=== PATIENT | female | born 1940 | race Caucasian/White ===

== ENCOUNTER 2021-03-10 10:50 | Outpatient (REF) | payer MEDICARE, SELFPAY ==
--- NOTE | ~2021-03-10 | MR_ITS ---
EXAMINATION: UNENHANCED MRI OF THE THORACIC SPINE; UNENHANCED MRI OF THE LUMBAR SPINE CLINICAL INFORMATION: Wedge compression fracture seen on CT at T12 and L2. Self-reported constant back pain after moving a refrigerator months ago. Constant pain around waist. Self-reported bilateral arm pain that sometimes is present. COMPARISON: Report CT lumbar spine 01/28/2021, report CT abdomen pelvis 01/28/2021. TECHNIQUE: Routine unenhanced MRI of the thoracic spine; routine unenhanced MRI of the lumbar spine. FINDINGS: MRI THORACIC SPINE: The T12 vertebral body demonstrates a horizontally oriented cleft containing fluid with approximately 50% overall loss of craniocaudal height of the vertebral body with an anterior wedge deformity in association with 5 mm retropulsion of T12. Marrow edema is present within the vertebral body with minimal extension into the left and right pedicles. Moderate-marked adjacent central canal stenosis is present with near complete effacement of the adjacent thecal sac CSF space and posterior displacement and AP deformation of the adjacent spinal cord without associated focal spinal cord signal abnormality. Furthermore, moderate bilateral foraminal stenoses are present secondary to intraforaminal and extraforaminal endplate osteophytosis and retropulsion with mild bilateral T11 dorsal root ganglion impingement. Elsewhere within the thoracic spine, no vertebral body compression deformities are identified and no additional vertebral body areas of edema or inflammatory changes are noted. No significant central or foraminal stenoses are noted elsewhere within the thoracic spine. Incidental note is made of multilevel bilateral extraforaminal perineural sheath cyst. Findings are most pronounced at T9-T10 where a left-sided perineural sheath cyst measures 1.3 cm in diameter. Within the incidentally visualized cervical spine, partial visualization is made of marked central stenosis at C5-C6 where partial visualization is made of a moderate-marked central and left parasagittal disc-osteophyte complex resulting in posterior displacement and AP deformation of the adjacent spinal cord with punctate T2 hyperintensity in adjacent spinal cord which may represent compressive myelomalacia. At C6-C7, partial visualization is made of a moderate posterior broad-based disc bulge resulting in at least moderate central and moderate right foraminal stenosis. At C7-T1, a mild central disc protrusion partially effaces the ventral thecal sac CSF space. Partial visualization is made of a trace left pleural effusion. MRI LUMBAR SPINE: 5 lumbar-type vertebral bodies are identified. Mild rotatory dextroscoliosis of the lumbar spine is visualized. A mild anterior wedge deformity with inward deformity of the superior endplate of L2 with 25% loss of vertebral body craniocaudal height is noted. No edema is noted in the L2 vertebral body. Findings are suspicious for a chronic benign compression deformity. Mild edema is present within the left lateral aspect of the L1 vertebral body without evidence of associated vertebral body deformation or fracture. Findings may be reactive secondary to the T12 compression fracture described above. The conus medullaris terminates at the level of L1-L2. The cauda equina is normal in appearance. T12-L1: Moderate central stenosis and moderate bilateral foraminal stenoses. Findings arise secondary to the T12 vertebral body compression deformity described above and a mild posterior broad-based disc-osteophyte complex partially effacing the adjacent thecal sac CSF space. L1-L2: Moderate central stenosis. Moderate left foraminal stenosis. Findings are present secondary to a moderate posterior broad-based disc-osteophyte complex with left parasagittal and intraforaminal eccentricity in combination with moderate left facet hypertrophic changes and mild right facet hypertrophic changes along with moderate bilateral ligamentum flavum hypertrophy. L3-L4: Mild central stenosis. Moderate left foraminal stenosis with left L3 nerve root impingement. Specifically, a left parasagittal and extraforaminal protrusion overlies a broad-based disc bulge and results in left L3 extraforaminal nerve root impingement. Furthermore, moderate bilateral facet and ligamentum flavum hypertrophy is present. L4-L5: Moderate right foraminal stenosis. Mild central stenosis with mild bilateral traversing L5 nerve root abutment and mild left foraminal stenosis. Findings arise secondary to a mild-moderate posterior broad-based disc-osteophyte complex with right parasagittal and right intraforaminal eccentricity in association with moderate right and mild left facet and ligamentum flavum hypertrophy. L5-S1: No central or foraminal stenoses. Partial visualization is made of central canal Tarlov cysts within the incidentally visualized sacrum. MR/MR thoracic spine wo con IMPRESSION: MRI THORACIC SPINE: 1. Benign-appearing ununited T12 vertebral body compression fracture with a horizontal vertebral body cleft. The fracture is associated with 5 mm retropulsion resulting in moderate-marked central canal stenosis with impingement upon the adjacent spinal cord without signal abnormality within the adjacent spinal cord to specifically suggest compressive myelomalacia. Elsewhere within the thoracic spine, no additional acute or chronic compression deformities identified. 2. Partial visualization of C5-C6 marked central canal stenosis within the incidentally visualized cervical spine. 3. Partially visualized trace left pleural effusion. MRI THORACIC SPINE: 1. Moderate multilevel chronic spondylosis of the lumbar spine. 2. No acute vertebral body compression fractures within the lumbar spine. Chronic benign-appearing compression deformity of L2 with 25% loss of craniocaudal height and chronic appearing inward deformity of the superior endplate of L2. No associated vertebral body retropulsion.
== END 2021-03-10 10:51 | disposition home or self-care (01) ==
LOC: HO.MRI 10:50
PROVIDERS: Visit Provider Internal Medicine
DX: S22.080S Wedge compression fracture of T11-T12 vertebra, sequela (principal)
CPT/HCPCS: 72146; 72148

== ENCOUNTER 2021-04-14 08:07 | Outpatient (RCR) | payer MEDICARE, MEDICAID, SELFPAY | END 2021-04-20 11:44 | disposition home or self-care (01) | LOC: HO.WCC 08:07 | PROVIDERS: PCP Internal Medicine; Visit Provider Surgery | DX: L89.41 Pressure ulcer of contiguous site of back, buttock and hip, stage 1 (principal); Z79.899 Other long term (current) drug therapy | CPT/HCPCS: 99212 ==

== ENCOUNTER → 2021-04-15 15:04 | Outpatient (REF) | payer MEDICARE, MEDICAID, SELFPAY ==
--- NOTE | 2021-04-15 15:00 | CA_ITS ---
Transthoracic Echocardiogram Patient (Last, First, Middle): Allie Balderrama, Marcel Gender: Female Date of : 1940 Age: 80 Procedure Date: 04/15/2021 Procedure Type: Transthoracic Echocardiogram Location: OP Height: 144.78 cm Weight: 58.06 kg BSA: 1.49 m2 Heart Rate: bpm BP: 126 / 80 mmHg Principal Associate: ANG Fuentes MD: Gail Sandhu MD News Videographer: Abran Best MD Symptoms: PALPITATIONS Study Quality: Good ECG Rhythm: Sinus Conclusions: - 1. Normal LV systolic function with grade 1 diastolic dysfunction with moderate asymptomatic Antelmo septal hypertrophy 2. Mildly dilated left atrium 3. Mild aortic regurgitation 4. Severe mitral annular calcification 5. Normal RV systolic pressure 6. No pericardial effusion Findings Left Ventricle Normal left ventricular size, thickness, and systolic function. The visually estimated ejection fraction is between 55-60%. There is no dynamic left ventricular outflow tract obstruction. Spectral Doppler is indicative of an impaired relaxation filling pattern. E/E prime ratio is <8, consistent with normal filling pressures. Evidence suggests grade I (mild) diastolic dysfunction. There is moderate septal asymmetric hypertrophy. Right Ventricle Normal right ventricular cavity size and systolic function. Atria The left atrium is mildly dilated. There is no evidence of interatrial shunt. The right atrium is normal in size. Aortic Valve There is mild calcification of the aortic valve. There is no aortic valve stenosis. There is mild aortic valve regurgitation. Mitral Valve There is mild anterior and severe posterior mitral leaflet thickening. There is severe mitral annular calcification. There is trace mitral valve regurgitation. There is no mitral valve stenosis. Pulmonic Valve The pulmonic valve was not well visualized. Tricuspid Valve Likely normal tricuspid valve structure and function. There is trace tricuspid valve regurgitation. The right ventricular systolic pressure is normal. The right ventricular systolic pressure is 27 mmHg. Normal right atrial pressure. There is no evidence of pulmonary hypertension. Great Vessels All visible segments of the aorta are normal in size. The pulmonary artery was not well visualized. Venous The inferior vena cava is normal in size and collapses greater than 50% with inspiration. Pericardium/Pleural There is no evidence of pericardial effusion. Prior Study Comparison No prior study available for comparison. Measurements 2D Linear Measurements IVSd: 1.33 0.6-0.9/0.6-1.0 cm LVIDd: 3.42 3.9-5.3/4.2-5.9 cm LVIDd Index: 2.30 2.4-3.2/2.2-3.1 cm/m2 LVIDs: 2.47 2.0-3.6 cm LVPWd: 1.05 0.7-1.1 cm Ao Root: 3.60 2.1-3.5 cm LA Diam: 3.30 2.7-3.8/3.0-4.0 cm LAIDs Index: 2.21 1.5-2.3 cm/m2 LV Mass: 161.31 67-162/88-224 g LV Mass Index: 108.26 43-95/49-115 g/m2 LVOT Diam: 2.00 3.0+(-)1.3 cm Mitral Valve MV Pk E: 0.53 MV PK A: 1.03 MV Decel Time: 289.00 E/A: 0.50 PHT: 85.00 MVA PHT: 2.59 Decel [place]: 1.84 Aortic Valve AoV Pk Bari: 1.43 AoV Mn Bari: 1.01 AoV VTI: 0.29 AoV Pk Grad: 8.00 Aov Mn Grad: 5.00 FRANCESCA Cont.VTI: 2.24 AI Pk Bari: 4.99 AI [place]: 2.36 LVOT LVOT Pk Bari: 0.90 LVOT Mn Bari: 0.67 LVOT VTI: 0.21 LVOT Pk Grad: 3.00 LVOT Mn Grad: 2.00 LVOT Diam: 2.00 LVOT Area: 3.14 Diastolic Function MV Pk E: 0.53 MV Pk A: 1.03 E/A: 0.50 Tricuspid Valve TR Pk Bari: 2.47 TR Pk Grad: 24.00 RA Press: 3.00 RVSP: 27.00 Great Vessels Aorta Ao Root-2D: 3.60 2.0-3.7 cm Ao Asc: 3.60 2.1-3.4 cm Ao Arch: 2.80 Updated in Other Vendor System with Status of Final Abran Best MD electronically signed on 04/16/2021 2:02:41 PM with status of Final
== END ==
LOC: HO.CARD 15:04
PROVIDERS: Visit Provider Internal Medicine
DX: R00.2 Palpitations (principal); Z95.0 Presence of cardiac pacemaker
CPT/HCPCS: 93306

== ENCOUNTER 2021-04-22 14:31 | Outpatient (REF) | payer MEDICARE, MEDICAID, SELFPAY ==
--- NOTE | ~2021-04-22 | MM_ITS ---
EXAMINATION: BONE DENSITOMETRY CLINICAL INDICATION: Screening for osteoporosis. Compression fractures of T12 and L2. COMPARISON: MR thoracic and lumbar spine 03/10/2021. TECHNIQUE: Using a [employer] DXA System (software version: 13.1) manufactured by [employer], dual-energy x-ray absorptiometry was performed of the lumbar spine and left hip. The images are of good technical quality. Summary results are attached. FINDINGS: AP SPINE L1-L4(L2): L2 vertebral body is excluded from final density measurement due to the compression deformity which may cause overestimation of the lumbar bone mineral density. BMD 1.218 g/cm2, Z-score 2.5, T-score 0.4, normal. LEFT FEMUR, NECK: BMD 0.752 g/cm2, Z-score 0.3, T-score -2.1, osteopenia. LEFT FEMUR, TOTAL: BMD 0.914 g/cm2, Z-score 1.5, T-score -0.7, normal. IDENTIFIED RISK FACTORS: Osteoporosis, dementia, height loss, history of fracture (adult), thiazide. Early menopause, secondary osteoporosis. HISTORY OF FRACTURE: T12 and L2 compressions. MEDICATIONS: Calcium supplements or multivitamin, vitamin D. MM/XR DEXA axial skeleton IMPRESSION: 1. DIAGNOSIS: Osteopenia based on the lowest T-score value of -2.1 in the femoral neck applying World Health Organization criteria. 2. 10-YEAR FRACTURE RISK PREDICTION, FRAX: Major osteoporotic fracture (clinical spine, forearm, hip or shoulder) 14.3%. Hip fracture 3.8%. 3. Treatment Recommendations: NOF guidelines recommend consideration for treatment in postmenopausal women and men age 50 and older presenting with the following: -A hip or vertebral (clinical or morphometric) fracture. -T-score less than or equal to -2.5 at the femoral neck or spine after appropriate evaluation to exclude secondary causes. -Low bone mass at the hip or spine and a 10-year fracture probability by FRAX of greater than or equal to 3% for hip fracture or greater than or equal to 20% for major osteoporotic fracture based on the [place] adapted WHO algorithm. 4. Other Recommendations: All treatment decisions require clinical judgment and consideration of individual patient factors, including patient preferences, comorbidities, previous drug use, risk factors not captured in the FRAX model (e.g. frailty, falls, vitamin D deficiency, increased bone turnover, interval significant decline in bone density) and possible under or overestimation of fracture risk by FRAX. Additional medical evaluation for secondary cause of low bone mineral density may be appropriate. FUTURE SCAN RECOMMENDATION: People with diagnosed cases of osteoporosis or at high risk for fracture should have regular bone mineral density tests. For patients eligible for Medicare, routine testing is allowed once every 2 years. The testing frequency can be increased to one year for patients who have rapidly progressing disease, those who are receiving or discontinuing medical therapy to restore bone mass, or have additional risk factors.
== END 2021-04-22 14:32 | disposition home or self-care (01) ==
LOC: HO.MAMMO 14:31
PROVIDERS: Visit Provider Internal Medicine
DX: Z13.820 Encounter for screening for osteoporosis (principal); M85.80 Other specified disorders of bone density and structure, unspecified site; M81.0 Age-related osteoporosis without current pathological fracture; Z78.0 Asymptomatic menopausal state; Z87.81 Personal history of (healed) traumatic fracture; Z79.899 Other long term (current) drug therapy
CPT/HCPCS: 77080

== ENCOUNTER → 2021-05-11 09:56 | Outpatient (BNVA) | payer MEDICARE, MEDICAID, SELFPAY | PROVIDERS: PCP Internal Medicine | DX: R39.15 Urgency of urination (principal) | CPT/HCPCS: 99202 ==

== ENCOUNTER 2021-05-12 14:58 | Outpatient (REF) | payer MEDICARE, MEDICAID, SELFPAY ==
[2021-05-12 17:17] LABS: Alanine Aminotransferase 20 U/L (0-31); Alkaline Phosphatase 114 U/L (39-117); Anion Gap 14 (12-20); Aspartate Amino Transferase 25 U/L (5-31); Bilirubin Total 0.7 mg/dL (0.0-1.0); Blood Urea Nitrogen 22 mg/dL (9-16); Calcium 9.4 mg/dL (8.4-10.2); Carbon Dioxide 29 mmol/L (22-29); Chloride 102 mmol/L (96-108); Estimated Glomerular Filt Rate 34; Glucose Random 102 mg/dL (60-115); Phosphorus 3.8 mg/dL (2.7-4.5); Potassium 3.5 mmol/L (3.3-5.1); Sodium 141 mmol/L (135-145); Total Protein 6.8 g/dL (6.5-8.0)
[2021-05-12 17:39] LABS: Free T4 (Free Thyroxine) 1.77 ng/dL (0.71-1.85); Thyroid Stimulating Hormone 0.35 uIU/mL (0.32-4.0)
[2021-05-13 11:41] LABS: Calcium (PTHI) 9.4 mg/dL (8.6-10.4); PTHI 126 pg/mL (14-64)
[2021-05-16 10:56] LABS: Calcium, Ionized 4.9 mg/dL (4.8-5.6)
[2021-05-17 13:56] LABS: Alkaline Phosphatase Bone 17.8 mcg/L (see note)
[2021-05-17 15:06] LABS: Prot Elec - Albumin 3.8 g/dL (3.8-4.8); Prot Elec - Alpha1 0.3 g/dL (0.2-0.3); Prot Elec - Alpha2 0.8 g/dL (0.5-0.9); Prot Elec - Beta 1 0.4 g/dL (0.4-0.6); Prot Elec - Beta 2 0.3 g/dL (0.2-0.5); Prot Elec - Gamma 1.1 g/dL (0.8-1.7); Prot Elec - Total Protein 6.6 g/dL (6.1-8.1)
== END 2021-05-12 14:59 | disposition home or self-care (01) ==
LOC: HO.LAB 14:58
PROVIDERS: PCP Internal Medicine; Visit Provider Internal Medicine
DX: M81.0 Age-related osteoporosis without current pathological fracture (principal); E55.9 Vitamin D deficiency, unspecified
CPT/HCPCS: 36415; 80053; 82306; 82330; 83970; 84075; 84100; 84165; 84439; 84443; 99202

== ENCOUNTER 2021-05-14 11:20 | Outpatient (REF) | payer MEDICARE, MEDICAID, SELFPAY ==
[2021-05-14 11:51] LABS: Creatinine, mg/dL 120.39
[2021-05-14 14:23] LABS: Creatinine, 24Hr Urine 0.3 G/Day (1.0-2.0); Total Volume 24 Hour Urine 275 mL
[2021-05-16 17:56] LABS: Calcium, 24 Hr Urine 6 mg/24 h; Calcium/Creatinine Ratio 12 mg/g creat (30-275); Creatinine 24Hr Urine 0.53 g/24 h (0.50-2.15)
== END 2021-05-14 11:21 | disposition home or self-care (01) ==
LOC: HO.LNP 11:20
PROVIDERS: Visit Provider Internal Medicine
DX: M81.0 Age-related osteoporosis without current pathological fracture (principal)
CPT/HCPCS: 82340; 82570